=== PATIENT | female | born 1985 | race Caucasian/White ===

== ENCOUNTER 2022-04-05 20:17 | Emergency (ER) | payer OTHER ==
[2022-04-05 21:05] VITALS: BP 126/74; PULSE 74; RESP 16; TEMP 99.1; BMI 27.3
[2022-04-05] MEDS ORDERED: IBUPROFEN 600 MG TABLET (FP) PO ONE ×2 (21:59→22:01)
[2022-04-05] MEDS ORDERED: METHOCARBAMOL 500 MG TABLET PO ONE (21:59)
[2022-04-05] MEDS ORDERED: METHOCARBAMOL 500 MG TABLET ONE (22:01)
== END 2022-04-05 22:06 | disposition home or self-care (01) ==
LOC: FER 20:17
DX: R07.9 Chest pain, unspecified (principal)
CPT/HCPCS: 93005; 99283-25